=== PATIENT | male | born 1985 ===

== ENCOUNTER 2021-10-03 16:43 | Emergency (ER) | payer BC ==
[2021-10-03] MEDS ORDERED: Morphine 4 MG/ML VIAL IVPUSH ONE ×2 (16:58→17:54)
[2021-10-03 17:30] LABS: BLOOD UREA NITROGEN,BUN 22 mg/dL (7.0-18.0); CARBON DIOXIDE,CO2 25.1 mmol/L (21.0-32.0); CHLORIDE,CL 101 mmol/L (98-107); GLUCOSE RANDOM 145 mg/dL (74-106); POTASSIUM,K 3.8 mmol/L (3.5-5.1); SODIUM,NA 139 mmol/L (136-148)
[2021-10-03] MEDS ORDERED: Lidocaine 1% 5 ML VIAL INJECT ONE (17:55)
[2021-10-03] MEDS ORDERED: Morphine 2 MG/ML SYRINGE IVPUSH ONE (19:39)
== END 2021-10-03 20:06 | disposition home or self-care (01) ==
LOC: MW.ED 16:43
DX: S62.305A Unspecified fracture of fourth metacarpal bone, left hand, initial encounter for closed fracture (principal); S42.022A Displaced fracture of shaft of left clavicle, initial encounter for closed fracture; Z88.0 Allergy status to penicillin; Z91.030 Bee allergy status; V86.56XA Driver of dirt bike or motor/cross bike injured in nontraffic accident, initial encounter
CPT/HCPCS: 29125; 36415; 71045; 72170; 73030; 73120; 73130; 80053; 85025; 85610; 96374; 96376; 99283; J2270; 26605; 99285